=== PATIENT | male | born 1965 | race Caucasian/White ===

== ENCOUNTER → 2016-05-24 | Outpatient (CLI) | payer OTHER ==
[~2016-05-24] MED LIST: ASPIR LOW81 MG PO; NAPROSYN500 MG PO; ULTRACET TABL1 UDTAB PO; UNKNOWN BP MED; ZYRTEC10 M3 PO
[2016-05-24 07:50] VITALS: BP 197/126
[2016-05-24 08:04] VITALS: BP 180/114
[2016-05-24 08:45] VITALS: BP 173/95
[2016-05-24 09:17] VITALS: BP 178/104
[2016-05-24 10:13] VITALS: BP 180/107
--- NOTE | 2016-05-24 10:35 | NUR ---
CALL TO YAHAIRA VALENZUELA APRN AT THIS TIME TO NOTIFY OF PT STILL HAVING ELEVATED BP POST CLONIDINE ADMINISTRATION, PT REPORTS CHEST PAIN IS 100% GONE, BRODIE REQUESTS I REMIND THE PATIENT TO CHECK HIS BP SOMEWHERE TOMORROW THEN COME BACK TO SEE HER IN THE WALK-IN CLINIC ON SUNDAY TO DISCUSS POSSIBLY STARTING BACK ON BP MEDICATIONS, PATIENT REPORTS HE HAS NEVER HAD "GOOD LUCK" WITH BP MEDS HE DOES NOT LIKE THE SIDE EFFECTS AND IT NEVER "ACTUALLY LOWERS MY BLOOD PRESSURE.", WILL DISCUSS WITH NICOLAS FURTHER ON SUNDAY TO RE-EVALUATE SYMPTOMS AND MEDICATION MANAGEMENT, DISCUSSED THIS WITH PATIENT, HE AGREES TO RETURN SUNDAY AM AT 0700 TO WALK-IN CLINI, IV REMOVED, AND PATIENT AMBULATORY AND STABLE UPON DC
== END ==
LOC: AMSURD 07:45
DX: L23.89 Allergic contact dermatitis due to other agents (principal); R07.9 Chest pain, unspecified
CPT/HCPCS: J1200; J2930; J7030

== ENCOUNTER → 2021-06-09 | Outpatient (CLI) | payer OTHER ==
[2021-06-09 08:54] LABS: BASO # 0.01 K/mm3 (0.02-0.10); EOS # 0.01 K/mm3 (0.04-0.40); EOS % 0.2 % (0.0-4.0); HEMOGLOBIN 15.3 g/dL (13.5-18.0); LYMPH# 1.63 K/mm3 (1.50-4.00); MEAN CELL VOLUME 86 fl (78-100); MEAN CORPUSCULAR HEMOGLOBIN 30 pg (27-31); MEAN CORPUSCULAR HGB CONC 36 g/dL (33-37); MEAN PLATELET VOLUME 9.5 fl (7.4-10.4); MONO # 0.58 K/mm3 (0.20-0.80); NEU # 4.32 K/mm3 (1.40-6.50); PLATELET COUNT 228 K/mm3 (130-400); RED BLOOD COUNT 5.03 M/mm3 (4.20-5.60); RED CELL DISTRIBUTION WIDTH 11.8 % (11.5-14.5); WHITE BLOOD COUNT 6.6 K/mm3 (4.8-10.8)
[2021-06-09 09:06] LABS: POTASSIUM 3.8 mmol/L (3.5-5.1)
[2021-06-09 09:07] LABS: ALBUMIN 4.2 g/dL (3.5-5.0)
[2021-06-09 09:08] LABS: CALCIUM 9.1 mg/dL (8.3-10.5)
[2021-06-09 09:09] LABS: TOTAL PROTEIN 7.1 g/dL (6.4-8.3)
[2021-06-09 09:11] LABS: TOTAL BILIRUBIN 0.9 mg/dL (0.2-1.2)
[2021-06-09 10:35] LABS: ERYTHROCYTE SEDIMENTATION RATE 11 mm/hr (0-20)
== END ==
LOC: LAB 08:27
PROVIDERS: Internal Medicine
DX: Z00.00 Encounter for general adult medical examination without abnormal findings (principal); Z12.5 Encounter for screening for malignant neoplasm of prostate; I10 Essential (primary) hypertension; M25.50 Pain in unspecified joint; M79.10 Myalgia, unspecified site; R07.89 Other chest pain

== ENCOUNTER → 2023-07-17 | Outpatient (CLI) | payer OTHER ==
[2023-07-17 17:26] LABS: HEMOGLOBIN 15.9 g/dL (13.5-18.0); LYMPH# 2.28 K/mm3 (1.50-4.00); MEAN CELL VOLUME 84 fl (78-100); MEAN CORPUSCULAR HEMOGLOBIN 29 pg (27-31); MEAN CORPUSCULAR HGB CONC 35 g/dL (33-37); MEAN PLATELET VOLUME 10.3 fl (7.4-10.4); MONO # 0.61 K/mm3 (0.20-0.80); NEU # 5.82 K/mm3 (1.40-6.50); PLATELET COUNT 194 K/mm3 (130-400); RED BLOOD COUNT 5.48 M/mm3 (4.20-5.60); RED CELL DISTRIBUTION WIDTH 11.9 % (11.5-14.5); WHITE BLOOD COUNT 8.7 K/mm3 (4.8-10.8)
[2023-07-17 17:33] LABS: ALBUMIN 4.2 g/dL (3.5-5.0)
[2023-07-17 17:35] LABS: CALCIUM 9.4 mg/dL (8.3-10.5)
[2023-07-17 17:36] LABS: TOTAL PROTEIN 6.9 g/dL (6.4-8.3)
[2023-07-17 17:38] LABS: TOTAL BILIRUBIN 0.5 mg/dL (0.2-1.2)
[2023-07-17 17:42] LABS: MAGNESIUM 1.87 mg/dL (1.60-2.60)
[2023-07-23 01:08] LABS: VITAMIN B1 120.8 nmol/L (())
== END ==
LOC: LAB 17:09
PROVIDERS: Internal Medicine
DX: E11.9 Type 2 diabetes mellitus without complications (principal); E23.0 Hypopituitarism; K90.9 Intestinal malabsorption, unspecified; M10.9 Gout, unspecified

== ENCOUNTER → 2023-11-20 | Outpatient (CLI) | payer OTHER ==
[2023-11-20 16:59] LABS: BASO # 0.01 K/mm3 (0.02-0.10); HEMATOCRIT 43.8 % (42.0-52.0); HEMOGLOBIN 15.5 g/dL (13.5-18.0); LYMPH# 2.55 K/mm3 (1.50-4.00); MEAN CELL VOLUME 86 fl (78-100); MEAN CORPUSCULAR HEMOGLOBIN 31 pg (27-31); MEAN CORPUSCULAR HGB CONC 35 g/dL (33-37); MEAN PLATELET VOLUME 9.9 fl (7.4-10.4); MONO # 0.68 K/mm3 (0.20-0.80); NEU # 6.79 K/mm3 (1.40-6.50); PLATELET COUNT 229 K/mm3 (130-400); RED BLOOD COUNT 5.09 M/mm3 (4.20-5.60); RED CELL DISTRIBUTION WIDTH 11.8 % (11.5-14.5); WHITE BLOOD COUNT 10.1 K/mm3 (4.8-10.8)
[2023-11-20 17:06] LABS: ALBUMIN 4.3 g/dL (3.5-5.0)
[2023-11-20 17:08] LABS: CALCIUM 9.2 mg/dL (8.3-10.5)
[2023-11-20 17:11] LABS: TOTAL BILIRUBIN 0.9 mg/dL (0.2-1.2)
[2023-11-20 17:15] LABS: MAGNESIUM 1.88 mg/dL (1.60-2.60)
[2023-11-21 01:25] LABS: TESTOSTERONE 314 ng/dL (221-716)
== END ==
LOC: LAB 16:46
PROVIDERS: Internal Medicine
DX: I10 Essential (primary) hypertension (principal); E11.9 Type 2 diabetes mellitus without complications; K90.9 Intestinal malabsorption, unspecified; E23.0 Hypopituitarism

== ENCOUNTER → 2023-12-20 | Outpatient (CLI) | payer OTHER ==
[2023-12-20 14:02] LABS: HEMATOCRIT 43.5 % (42.0-52.0); HEMOGLOBIN 15.5 g/dL (13.5-18.0); LYMPH# 2.52 K/mm3 (1.50-4.00); MEAN CELL VOLUME 86 fl (78-100); MEAN CORPUSCULAR HEMOGLOBIN 31 pg (27-31); MEAN CORPUSCULAR HGB CONC 36 g/dL (33-37); MEAN PLATELET VOLUME 9.8 fl (7.4-10.4); MONO # 0.73 K/mm3 (0.20-0.80); NEU # 7.34 K/mm3 (1.40-6.50); PLATELET COUNT 244 K/mm3 (130-400); RED BLOOD COUNT 5.09 M/mm3 (4.20-5.60); RED CELL DISTRIBUTION WIDTH 11.5 % (11.5-14.5); WHITE BLOOD COUNT 10.6 K/mm3 (4.8-10.8)
[2023-12-21 09:21] LABS: ANA SCREEN with REFLEX Positive (Negative)
[2023-12-25 05:38] LABS: ANTI-CYC CITRULLINATED PEPT AB 7 units (0-19)
== END ==
LOC: LAB 13:51
PROVIDERS: Internal Medicine
DX: M25.50 Pain in unspecified joint (principal)

== ENCOUNTER → 2024-01-08 | Outpatient (CLI) | payer OTHER ==
[~2024-01-08] MED LIST changes: +ASPIRIN E.C. 8181 MG PO; +CYANOCOBAL1000 MCG/1 SC; +INSULIN HUMA100 U/ML SC; +LANTUS PEN100 U/ML SC; +LISINOPRIL10 MG PO; +LYRICA75 MG PO; +OXYCODONE HCL10 M1 PO; +ROBAXIN 75750 MG/TA1 PO; +VALIUM 10MG10 MG/TAB PO
== END ==
LOC: RAD 12:50
DX: M47.26 Other spondylosis with radiculopathy, lumbar region (principal); M47.27 Other spondylosis with radiculopathy, lumbosacral region; M51.16 Intervertebral disc disorders with radiculopathy, lumbar region; M51.17 Intervertebral disc disorders with radiculopathy, lumbosacral region; M48.061 Spinal stenosis, lumbar region without neurogenic claudication; M48.07 Spinal stenosis, lumbosacral region; M13.88 Other specified arthritis, other site

== ENCOUNTER 2024-02-11 16:41 | Inpatient (IN) | payer OTHER ==
[~2024-02-11] VITALS: Ht 152.4 cm; Wt 84.2 kg
[~2024-02-11 16:41] MED LIST changes: -ASPIRIN E.C. 8181 MG PO; -CYANOCOBAL1000 MCG/1 SC; -INSULIN HUMA100 U/ML SC; -LANTUS PEN100 U/ML SC; -LISINOPRIL10 MG PO; -LYRICA75 MG PO; -OXYCODONE HCL10 M1 PO; -ROBAXIN 75750 MG/TA1 PO; -VALIUM 10MG10 MG/TAB PO
[2024-02-11] MEDS ORDERED: Polyethylene Glycol 3350 Powder 17 GM PACKET PO PRN (17:45)
[2024-02-11] MEDS ORDERED: Acetaminophen 500 MG TAB PO PRN (17:45)
[2024-02-11] MEDS ORDERED: INSULIN HUMA100 U/ML SC (17:56)
[2024-02-11] MEDS ORDERED: LANTUS PEN100 U/ML SC (17:58)
[2024-02-11] MEDS ORDERED: LISINOPRIL10 MG PO (17:59)
[2024-02-11] MEDS ORDERED: ASPIRIN E.C. 8181 MG PO (18:01)
[2024-02-11] MEDS ORDERED: CYANOCOBAL1000 MCG/1 SC (18:03)
[2024-02-11] MEDS ORDERED: VALIUM 10MG10 MG/TAB PO (18:05)
[2024-02-11] MEDS ORDERED: ROBAXIN 75750 MG/TA1 PO (18:07)
[2024-02-11] MEDS ORDERED: OXYCODONE HCL10 M1 PO (18:09)
[2024-02-11] MEDS ORDERED: LYRICA75 MG PO (18:10)
[2024-02-11 18:25] VITALS: BP 152/79
[2024-02-11] MEDS ORDERED: tiZANidine 4 MG TABLET PO PRN (18:30)
[2024-02-11] MEDS ORDERED: oxyCODONE 5 MG TAB PO PRN (18:30)
[2024-02-11] MEDS ORDERED: Dextrose 50% Water 25 GM/50 ML SYRINGE IV PRN (18:30)
[2024-02-11] MEDS ORDERED: Glucagon 1 MG VIAL IM PRN (18:30)
[2024-02-11] MEDS ORDERED: Dextrose (Glucose) 15 GM (4 x 3.75 GM) Chewable TAB PACK PO PRN (18:30)
[2024-02-11] MEDS ORDERED: diazePAM 5 MG TAB PO PRN (18:30)
--- NOTE | 2024-02-11 18:48 | NUR ---
PATIENT ALERT AND ORIENTED X4. HE ARRIVED AT [facility] WITH SPOUSE VIA WHEELCHAIR. VS AND WEIGHT OBTAINED. HE REPORTS THAT HE HAS MORE LEFT LEG PAIN THAN BACK PAIN. REPORTS REPEATED FALLS HOME. WHILE ASKING ADMISSION QUESTIONS HE USED SEVERAL CURSE WORDS THROUGHOUT THE CONVERSATION. HE WAS MOSTLY POLITE, BUT STATES HE CAN EASILY BE ANNOYED. HE REFUSED TO PUT ON YELLOW SOCKS PRIOR TO GETTING OUT OF BED. NURSE OFFERED HIS SLIPPERS AND HE REFUSED THOSE WELL. HE HAS AN ABRASION ON LEFT VASQUEZ 1CM X 0.5CM. PATIENT STATES THAT HE HAS LOST 30LBS SINCE NOV. HE TOLD STAFF THAT HE DOES NOT ACCEPT THAT HE IS DIABETIC. HIS GROIN IS RED FROM URINARY FREQUENCY AND HAVING TO LAY IN URINE AT PREVIOUS LOCATION. WHEN BARRIER CREAM WAS OFFERED, HE REFUSED. HE DID NOT WANT TO USE CALL LIGHT DURING THE NIGHT WHEN NEEDING TO VOID SO URINAL WAS GIVEN TO HIM. STATES HE HAS HAD SOME CONFUSION AND THINKS IT'S DUE TO THE PAIN MEDICATION. WHEN ASKED ABOUT THE SUICIDE RISK ASSESSMENT QUESTIONS, HE STATES THAT THOSE ARE PERSONAL QUESTIONS AND WHEN ASKED ABOUT THOUGHT REGAURDING KILLING YOURSELF, HE RESPONDED WITH "I GUESS THAT I SHOULD SAY NO." HE SAYS THAT HE WOULD NEVER DO ANYTHING SINCE HE HAS 7 GRANDKIDS. PATIENT AT SUPPER. HE IS CURRENTLY IN BED WITH BED ALARM ON, CALL LIGHT IN REACH. STAFF WILL CONTINUE TO MONITOR.
[2024-02-11 19:10] VITALS: BP 129/72
[2024-02-11] MEDS ORDERED: Insulin Lispro (HumaLOG) SQ SCH (21:00)
[2024-02-11] MEDS ORDERED: Insulin Glargine-ygfn (Lantus) SQ SCH (21:00)
[2024-02-11] MEDS ORDERED: Pregabalin 25 MG CAP PO SCH (21:00)
--- NOTE | 2024-02-11 21:31 | NUR ---
PT RESTING IN BED. REPORTS HIS BACK IS OK, BUT HIS L KNEE IS HURTING HIM THE MOST. L KNEE PROPPED ON A PILLOW AND PAIN MEDS GIVEN. DENIED SACRAL ASSESSMENT HE STATES HE JUST GOT COMFORTABLE. STATES HE WILL CALL IF HE HAS ANY NEEDS
--- NOTE | 2024-02-12 02:04 | NUR ---
PT CALLED AROUND 0145 DEMANDING PAIN MEDS AND STATING HE WAS GOING TO LEAVE IF HE DID NOT RECEIVE ANY. EXPLAINED TO THE PATIENT THAT HE RECEIVED OXYCODONE AT 2115 AND IT IS ONLY PRESCRIBED EVERY 6 HRS PRN AND HE COULD HAVE IT AGAIN AT 0315. PT STATES SOMEONE CAME IN AT 5 AM AND TOLD HIM THAT HE MISSED HIS LAST PAIN DOSE BECAUSE HE WAS SLEEPING. INFORMED PATIENT THAT IT WAS THIS RN WHO CAME IN AND SAID HE WAS NOT AWOKEN TO REASSESS HIS PAIN BUT HE DID NOT MISS A DOSE. OFFERED PATIENT A MUSCLE RELAXER WHICH HE STATED HE DID NOT WANT. REFUSED TYLENOL PREVIOUSLY WELL HE STATED IT DID NOT WORK. PT STATED HE WAS GOING TO CALL HIS FRIEND TO PICK HIM UP TO GET COFFEE AND DONUTS IF WE WERE NOT GOING TO HELP HIM BECAUSE HE FELT BETTER AT HOME. INFORMED PATIENT THAT IT IS NOT THAT WE ARE UNABLE TO HELP BUT THAT HE HAS TO WAIT A FEW HOURS FOR MORE OXYCODONE. ALSO EDUCATED THE PATIENT ON OPIOID SAFETY BUT PATIENT IGNORED THIS RN AND STARTED CALLING FOR A RIDE AND GETTING DRESSED. AMA PAPERWORK SIGNED AND PROVIDER NOTIFIED.
[2024-02-12] MEDS ORDERED: Insulin Lispro (HumaLOG) SQ SCH ×2 (07:00→07:30)
[2024-02-12] MEDS ORDERED: dexAMETHasone 4 MG TAB PO SCH (08:00)
[2024-02-12] MEDS ORDERED: Polyethylene Glycol 3350 Powder 17 GM PACKET PO SCH (09:00)
[2024-02-12] MEDS ORDERED: Lidocaine 4% Topical Patch TP SCH (09:00)
[2024-02-12] MEDS ORDERED: Cetirizine 10 MG TAB PO SCH (09:00)
[2024-02-12] MEDS ORDERED: Lisinopril 5 MG TAB PO SCH (09:00)
[2024-02-15] MEDS ORDERED: dexAMETHasone 4 MG TAB PO SCH (09:00)
== END 2024-02-12 02:00 | disposition left against medical advice (07) | DRG 861 ==
LOC: MED/SURG 16:41
PROVIDERS: ADMIT Family Medicine
DX: R53.81 Other malaise (principal); E11.65 Type 2 diabetes mellitus with hyperglycemia; E11.42 Type 2 diabetes mellitus with diabetic polyneuropathy; M25.562 Pain in left knee; G89.29 Other chronic pain; M54.89 Other dorsalgia; I10 Essential (primary) hypertension; M10.9 Gout, unspecified; Z66 Do not resuscitate; N39.41 Urge incontinence; E55.9 Vitamin D deficiency, unspecified; Z79.82 Long term (current) use of aspirin; Z79.4 Long term (current) use of insulin
CPT/HCPCS: J1815

== ENCOUNTER → 2024-04-01 | Outpatient (CLI) | payer OTHER ==
[~2024-04-01] MED LIST changes: +ASPIRIN E.C. 8181 MG PO; +CYANOCOBAL1000 MCG/1 SC; +INSULIN HUMA100 U/ML SC; +LANTUS PEN100 U/ML SC; +LISINOPRIL10 MG PO; +LYRICA75 MG PO; +OXYCODONE HCL10 M1 PO; +ROBAXIN 75750 MG/TA1 PO; +VALIUM 10MG10 MG/TAB PO
[2024-04-01 13:49] LABS: URINE WBC 0 /hpf (0-3)
[2024-04-01 14:11] LABS: HEMATOCRIT 41.5 % (42.0-52.0); HEMOGLOBIN 14.5 g/dL (13.5-18.0); LYMPH# 1.89 K/mm3 (1.50-4.00); MEAN CELL VOLUME 88 fl (78-100); MEAN CORPUSCULAR HEMOGLOBIN 31 pg (27-31); MEAN CORPUSCULAR HGB CONC 35 g/dL (33-37); MEAN PLATELET VOLUME 9.9 fl (7.4-10.4); MONO # 0.58 K/mm3 (0.20-0.80); NEU # 5.83 K/mm3 (1.40-6.50); PLATELET COUNT 235 K/mm3 (130-400); RED BLOOD COUNT 4.71 M/mm3 (4.20-5.60); RED CELL DISTRIBUTION WIDTH 12.2 % (11.5-14.5); WHITE BLOOD COUNT 8.3 K/mm3 (4.8-10.8)
[2024-04-01 14:31] LABS: ALBUMIN 4.3 g/dL (3.5-5.0)
[2024-04-01 14:32] LABS: CALCIUM 9.5 mg/dL (8.3-10.5)
[2024-04-01 14:33] LABS: TOTAL PROTEIN 6.5 g/dL (6.4-8.3)
[2024-04-01 14:35] LABS: TOTAL BILIRUBIN 0.7 mg/dL (0.2-1.2)
[2024-04-01 14:39] LABS: PROTHROMBIN TIME 10.9 SECONDS (9.0-12.0)
[2024-04-01 14:40] LABS: MAGNESIUM 1.89 mg/dL (1.60-2.60)
[2024-04-01 15:21] LABS: URINE COLOR LIGHT YELLOW (YELLOW)
[2024-04-01 15:22] LABS: URINE APPEARANCE CLEAR (CLEAR); URINE BILIRUBIN NEGATIVE (NEGATIVE); URINE BLOOD NEGATIVE (NEGATIVE); URINE GLUCOSE NEGATIVE (NEGATIVE); URINE KETONE NEGATIVE (NEGATIVE); URINE LEUKOCYTE ESTERASE NEGATIVE (NEGATIVE); URINE NITRATE NEGATIVE (NEGATIVE); URINE PROTEIN(semi-quant) NEGATIVE (NEGATIVE)
== END ==
LOC: LAB 13:32
PROVIDERS: Internal Medicine
DX: Z01.818 Encounter for other preprocedural examination (principal); K90.9 Intestinal malabsorption, unspecified; E11.9 Type 2 diabetes mellitus without complications